=== PATIENT | female | born 1955 | race Asian ===

== ENCOUNTER 2022-07-12 12:32 | Emergency (ER) | payer OTHER, BC ==
--- NOTE | 2022-07-12 13:18 | RAD REPORT ---
EXAM DESCRIPTION: CT - CTHCSPWOC - 07/12/2022 12:56 pm CLINICAL HISTORY: Trauma, head and neck injury. Syncope, simple, normal neuro exam COMPARISON: No comparisons TECHNIQUE: Axial 5 mm thick images of the head were obtained. Axial 2 mm thick images of the cervical spine were obtained with sagittal and coronal reconstruction images generated and reviewed. All CT scans are performed using dose optimization technique as appropriate and may include automated exposure control or mA/KV adjustment according to patient size. FINDINGS: CT HEAD WITHOUT CONTRAST: No acute hemorrhage, hydrocephalus or extra-axial collection is identified.No areas of brain edema or midline shift. Mineralization within the basal ganglia bilaterally, right greater than left. Small f ocus of hyperattenuation is in the right parietal lobe. The paranasal sinuses and mastoids are clear.The calvarium is intact. CT CERVICAL SPINE WITHOUT CONTRAST: No fracture or subluxation.No prevertebral soft tissues swelling is identified. Mild multilevel cervi trent spondylosis. Retrolisthesis of C4 on C5 results in severe bilateral neural foraminal narrowing an d mild central spinal stenosis . Neural foraminal narrowing is also advanced at C5-C6 and C6-7. IMPRESSION: No acute intracranial or cervical spine findings. Asymmetric basal ganglia hyperattenuation on the right as well a small focus of hypoattenuation in th e right parietal lobe favored chronic. Consider further evaluation with contrast-enhanced brain MRI t o further assess. It could be secondary to underlying vascular anomalies.
[2022-07-12 13:45] LABS: Absolute Lymphocytes (CBC) 1.6 K/uL (0.7-4.9); Hematocrit 33.2 % (36.0-45.0); Lymphocytes % 16.3 % (15.3-44.8); MCV 92.8 fL (80-100); MPV 8.2 fL (7.6-11.3); RBC Red Blood Cell Count 3.57 M/uL (3.86-4.86)
--- NOTE | 2022-07-12 13:45 | RAD REPORT ---
EXAM DESCRIPTION: RAD - Foot Right 3 View - 07/12/2022 1:30 pm CLINICAL HISTORY: syncope COMPARISON: No comparisons FINDINGS/IMPRESSION: No acute fracture. No malalignment. Calcaneal spurring. Degenerative changes ar e present at the first tarsal metatarsal joint. A well corticated fragment is seen along the dorsal a spect of the foot at the level of the medial cuneiform. This is favored chronic and either secondary to remote trauma or degenerative changes. Correlate with site of pain.
[2022-07-12 13:49] LABS: Protime INR 1.04
--- NOTE | 2022-07-12 13:52 | RAD REPORT ---
EXAM DESCRIPTION: RAD - Chest Single View - 07/12/2022 1:30 pm CLINICAL HISTORY: COUGH COMPARISON: No comparisons FINDINGS: Lines: None. Lungs: No evidence of edema or pneumonia. Pleural: No significant pleural effusions or pneumothorax. Cardiac: Borderline enlarged cardiac size Atherosclerosis. Mediastinum: Within normal limits. Bones: No acute fractures. Other: None IMPRESSION: No acute cardiopulmonary disease.
[2022-07-12 14:16] LABS: Albumin 3.5 g/dL (3.4-5.0); Bilirubin Direct 0.1 mg/dL (0-0.2); Bilirubin Total 0.4 mg/dL (0.2-1.0); Magnesium 2.2 mg/dL (1.8-2.4); Potassium 3.6 mmol/L (3.5-5.1); Protein, Total 7.6 g/dL (6.4-8.2); Troponin High Sensitivity 5.8 pg/mL (<58.9)
[2022-07-12 14:54] LABS: Urine Blood Trace-intact (Negative); Urine Glucose Negative (Negative); Urine Protein Trace (Negative); Urine pH 8.5 (5.0-7.0)
--- NOTE | 2022-07-12 15:05 | ER ---
Nurse's Notes [facility] Name: Bessie Garcia Age: 67 yrs Sex: Female : 1955 Arrival Date: 07/12/2022 Time: 12:35 Bed 2 Private MD: Diagnosis: Syncope Near;Weakness;UTI/ Urinary tract infection, site not specified;Other sprain of right foot Presentation: 07/12 12:39 Chief complaint: EMS states: Toned out for syncopal episode, pt standing and fishing jl7 then family heard a thump and saw pt had fallen down. BP 60 systolic on EMS arrival, gave 300 mL NS in route to ED, BP up to 110 systolic. Pt complaining of pain to right foot, swelling noted. Family reports this has happened before, unknown cause. Coronavirus screen: At this time, the client does not indicate any symptoms associated with coronavirus-19. Ebola Screen: No symptoms or risks identified at this time. Initial Sepsis Screen: Does the patient meet any 2 criteria? No. Patient's initial sepsis screen is negative. Does the patient have a suspected source of infection? No. Patient's initial sepsis screen is negative. Risk Assessment: Do you want to hurt yourself or someone else? Patient reports no desire to harm self or others. Onset of symptoms was July 12, 2022. Care prior to arrival: Medication(s) given: Normal saline infusion, 300 mL IV initiated. 20 GA, in the right antecubital area, Glucose check: 151. 12:39 Method Of Arrival: EMS: [facility] 7 12:39 Acuity: JOBY 3 jl7 Triage Assessment: 12:43 General: Appears in no apparent distress. uncomfortable, Behavior is calm, cooperative, jl7 appropriate for age. Pain: Complains of pain in dorsum of right foot Pain currently is 10 out of 10 on a pain scale. Neuro: Level of Consciousness is awake, alert, obeys commands, Oriented to person, place, time, situation, Reports a syncopal episode Denies weakness dizziness. Cardiovascular: Denies chest pain, lightheadedness, Patient's skin is warm and dry. Rhythm is regular. Derm: Skin is pink, warm \T\ dry. Historical: - Allergies: 12:43 No Known Allergies; jl7 - PMHx: 12:43 Hypertensive disorder; Hypercholesterolemia; jl7 - Immunization history:: Client reports receiving the 2nd dose of the Covid vaccine. - Social history:: Smoking status: Patient denies any tobacco usage or history of. - Family history:: not pertinent. Screenin:30 Abuse screen: Denies threats or abuse. Denies injuries from another. Nutritional jl7 screening: No deficits noted. Tuberculosis screening: No symptoms or risk factors identified. Fall Risk IV access (20 points). Total Vásquez Fall Scale indicates No Risk (0-24 pts). Assessment: 13:30 Reassessment: Patient appears in no apparent distress at this time. No changes from jl7 previously documented assessment. Patient and/or family updated on plan of care and expected duration. Pain level reassessed. Patient is alert, oriented x 3, equal unlabored respirations, skin warm/dry/pink. 14:30 Reassessment: Patient appears in no apparent distress at this time. No changes from jl7 previously documented assessment. Patient and/or family updated on plan of care and expected duration. Pain level reassessed. Patient is alert, oriented x 3, equal unlabored respirations, skin warm/dry/pink. Neuro: Level of Consciousness is awake, alert, obeys commands, Oriented to person, place, time, situation. Cardiovascular: Patient's skin is warm and dry. Vital Signs: 12:30 BP 105 / 64 Supine; Pulse 70; jl7 12:31 BP 102 / 79 Sitting; Pulse 70; jl7 12:32 BP 109 / 68 Standing; Pulse 72; jl7 12:39 BP 110 / 66; Pulse 70; Resp 15; Temp 97.1; Pulse Ox 98% on R/A; Weight 47.63 kg; Height jl7 5 ft. 0 in. (152.40 cm); Pain 10/10; 13:00 BP 109 / 56; Pulse 68; Resp 15; Pulse Ox 100% ; jl7 14:00 BP 118 / 66; Pulse 77; Resp 15; Pulse Ox 100% ; jl7 14:45 BP 128 / 67; Pulse 76; Resp 15; Pulse Ox 100% ; jl7 15:30 BP 133 / 77; Pulse 76; Resp 19; Pulse Ox 100% ; jl7 12:39 Body Mass Index 20.51 (47.63 kg, 152.40 cm) jl7 ED Course: 12:35 Patient arrived in ED. ss 12:39 Bertrand Powers, RN is Primary Nurse. jl7 12:40 Prabhakar Huggins MD is Attending Physician. jesse 12:43 Triage completed. jl7 12:43 Arm band placed on right wrist. jl7 12:45 Patient has correct armband on for positive identification. Placed in gown. Bed in low jl7 position. Call light in reach. Side rails up X 1. Client placed on continuous cardiac and pulse oximetry monitoring. NIBP monitoring applied. 12:45 Warm blanket given. jl7 12:56 Head C Spine Mpr Wo Con In Process Unspecified. EDMS 13:03 CT Head C Spine In Process Unspecified. EDMS 13:21 Initial lab(s) drawn, by me, sent to lab. EKG done, by ED staff, reviewed by Prabhakar Huggins MD. Maintain EMS IV. Dressing intact. Good blood return noted. Site clean \T\ dry. Gauge \T\ site: 20 Right AC. 13:32 XRAY Chest (1 view) In Process Unspecified. EDMS 13:32 Foot Right 3 View XRAY In Process Unspecified. EDMS 14:58 SARS RAPID Sent. kc6 15:05 Darryl Saavedra MD is Referral Physician. jesse 15:05 Marcellus Gonzalez MD is Referral Physician. jesse 15:47 No provider procedures requiring assistance completed. IV discontinued, intact, jl7 bleeding controlled, No redness/swelling at site. Pressure dressing applied. 15:47 walking boot/air cast. jl7 Administered Medications: 13:33 Drug: NS 0.9% 1000 ml {Note: Administering NS from EMS.} Route: IV; Rate: 1 bolus; jl7 Site: right antecubital; 14:30 Follow up: Response: No adverse reaction; IV Status: Completed infusion; IV Intake: jl7 1000ml 15:20 Drug: Rocephin (cefTRIAXone) 1 grams Route: IV; Rate: per protocol; Site: right jl7 antecubital; 15:30 Follow up: Response: No adverse reaction; IV Status: Completed infusion jl7 15:42 Not Given (Patient Refused): Aspirin Chewable Tablet 162 mg PO once jl7 Medication: 15:45 VIS not applicable for this client. jl7 Intake: 14:30 IV: 1000ml; Total: 1000ml. jl7 Outcome: 15:04 Discharge ordered by . jesse 15:47 Discharged to home via wheelchair, with family. lucero 15:47 Condition: stable 15:47 Discharge instructions given to patient, family, Instructed on discharge instructions, follow up and referral plans. medication usage, Demonstrated understanding of instructions, follow-up care, medications, Prescriptions given X 2. 15:47 Patient left the ED. lucero Signatures: Dispatcher [employer] EDNM Prabhakar Huggins MD MD cha Smirch, Shelby, RN RN Bertrand Powers RN RN Paula Pillai6
--- NOTE | 2022-07-12 15:05 | EDPHYS ---
Physician Documentation [facility] Name: Bessie Garcia Age: 67 yrs Sex: Female : 1955 Arrival Date: 07/12/2022 Time: 12:35 Bed 2 Private MD: ED Physician Prabhakar Huggins HPI: 07/12 14:53 This 67 yrs old Female presents to ER via EMS with complaints of Syncope. jesse 14:53 The patient has experienced near-syncope, felt faint, felt generally weak. Onset: The jesse symptoms/episode began/occurred just prior to arrival. Duration: This was a single episode, that lasted 20 second(s). Context: the episode(s) was witnessed, by family. Associated injury: Right lower extremity: lateral aspect of right foot, contusion, decreased range of motion, pain. Associated signs and symptoms: The patient has no apparent associated signs or symptoms. Current symptoms: Currently, the patient is not experiencing any symptoms. The patient has not experienced similar symptoms in the past. outside fishing 2 hours. Historical: - Allergies: 12:43 No Known Allergies; jl7 - PMHx: 12:43 Hypertensive disorder; Hypercholesterolemia; jl7 - Immunization history:: Client reports receiving the 2nd dose of the Covid vaccine. - Social history:: Smoking status: Patient denies any tobacco usage or history of. - Family history:: not pertinent. ROS: 14:53 Constitutional: Negative for fever, chills, and weight loss, Eyes: Negative for injury, jesse pain, redness, and discharge, ENT: Negative for injury, pain, and discharge, Neck: Negative for injury, pain, and swelling, Cardiovascular: Negative for chest pain, palpitations, and edema, Respiratory: Negative for shortness of breath, cough, wheezing, and pleuritic chest pain, Abdomen/GI: Negative for abdominal pain, nausea, vomiting, diarrhea, and constipation, Back: Negative for injury and pain, : Negative for injury, bleeding, discharge, and swelling, Skin: Negative for injury, rash, and discoloration, Psych: Negative for depression, anxiety, suicide ideation, homicidal ideation, and hallucinations, Allergy/Immunology: Negative for hives, rash, and allergies, Endocrine: Negative for neck swelling, polydipsia, polyuria, polyphagia, and marked weight changes. 14:53 MS/extremity: Positive for decreased range of motion, pain, swelling, tenderness, of the dorsum of right foot. Exam: 14:53 Constitutional: This is a well developed, well nourished patient who is awake, alert, jesse and in no acute distress. Head/Face: Normocephalic, atraumatic. Eyes: Pupils equal round and reactive to light, extra-ocular motions intact. Lids and lashes normal. Conjunctiva and sclera are non-icteric and not injected. Cornea within normal limits. Periorbital areas with no swelling, redness, or edema. ENT: Nares patent. No nasal discharge, no septal abnormalities noted. Tympanic membranes are normal and external auditory canals are clear. Oropharynx with no redness, swelling, or masses, exudates, or evidence of obstruction, uvula midline. Mucous membranes moist. Neck: Trachea midline, no thyromegaly or masses palpated, and no cervical lymphadenopathy. Supple, full range of motion without nuchal rigidity, or vertebral point tenderness. No Meningismus. Chest/axilla: Normal chest wall appearance and motion. Nontender with no deformity. No lesions are appreciated. Cardiovascular: Regular rate and rhythm with a normal S1 and S2. No gallops, murmurs, or rubs. Normal PMI, no JVD. No pulse deficits. Respiratory: Lungs have equal breath sounds bilaterally, clear to auscultation and percussion. No rales, rhonchi or wheezes noted. No increased work of breathing, no retractions or nasal flaring. Abdomen/GI: Soft, non-tender, with normal bowel sounds. No distension or tympany. No guarding or rebound. No evidence of tenderness throughout. Back: No spinal tenderness. No costovertebral tenderness. Full range of motion. Female : Normal external genitalia. Skin: Warm, dry with normal turgor. Normal color with no rashes, no lesions, and no evidence of cellulitis. Neuro: Awake and alert, GCS 15, oriented to person, place, time, and situation. Cranial nerves II-XII grossly intact. Motor strength 5/5 in all extremities. Sensory grossly intact. Cerebellar exam normal. Normal gait. Psych: Awake, alert, with orientation to person, place and time. Behavior, mood, and affect are within normal limits. 14:53 Musculoskeletal/extremity: ROM: full active range of motion, full passive range of motion, Circulation is intact in all extremities. Sensation intact. Compartment Syndrome exam of affected extremity: is normal. Joints: All joints appear normal with full range of motion. Weight bearing: DVT Exam: No signs of deep vein thrombosis. negative Homans' sign noted on exam, no appreciated bluish discoloration, no erythema, no increased warmth, pain, swelling, tenderness, of the dorsum of right foot. 15:47 ECG was reviewed by the Attending Physician. jesse Vital Signs: 12:30 BP 105 / 64 Supine; Pulse 70; jl7 12:31 BP 102 / 79 Sitting; Pulse 70; jl7 12:32 BP 109 / 68 Standing; Pulse 72; jl7 12:39 BP 110 / 66; Pulse 70; Resp 15; Temp 97.1; Pulse Ox 98% on R/A; Weight 47.63 kg; Height jl7 5 ft. 0 in. (152.40 cm); Pain 10/10; 13:00 BP 109 / 56; Pulse 68; Resp 15; Pulse Ox 100% ; jl7 14:00 BP 118 / 66; Pulse 77; Resp 15; Pulse Ox 100% ; jl7 14:45 BP 128 / 67; Pulse 76; Resp 15; Pulse Ox 100% ; jl7 15:30 BP 133 / 77; Pulse 76; Resp 19; Pulse Ox 100% ; jl7 12:39 Body Mass Index 20.51 (47.63 kg, 152.40 cm) jl7 MDM: 12:40 Patient medically screened. jesse 15:45 Differential Diagnosis: aortic aneurysm, cardiac arrhythmia, cerebrovascular accident, jesse emotional response, GI bleed, , pseudo seizure, seizure, sepsis, transient ischemic attack, vasovagal episode. Data reviewed: vital signs, nurses notes, lab test result(s), EKG, radiologic studies, CT scan, plain films. Data interpreted: monitoring manager: rate is 73 beats/min, rhythm is regular, Pulse oximetry: on room air is 100 %. Test interpretation: by ED physician or midlevel provider: ECG, plain radiologic studies. Counseling: I had a detailed discussion with the patient and/or guardian regarding: the historical points, exam findings, and any diagnostic results supporting the discharge/admit diagnosis, lab results, radiology results, the need for outpatient follow up, for definitive care, a cafe server, a family practitioner, a orthopedic surgeon. 07/12 12:43 Order name: Basic Metabolic Panel; Complete Time: 14:50 [facility] 07/12 12:43 Order name: CBC with Diff; Complete Time: 13:53 [facility] 07/12 12:43 Order name: LFT's; Complete Time: 14:50 [facility] 07/12 12:43 Order name: Magnesium; Complete Time: 14:50 [facility] 07/12 12:43 Order name: NT PRO-BNP; Complete Time: 14:50 [facility] 07/12 12:43 Order name: PT-INR; Complete Time: 13:53 [facility] 07/12 12:43 Order name: Troponin HS; Complete Time: 14:50 [facility] 07/12 12:43 Order name: XRAY Chest (1 view); Complete Time: 14:50 [facility] 07/12 12:43 Order name: Lipase; Complete Time: 14:50 [facility] 07/12 12:43 Order name: SARS RAPID [facility] 07/12 12:54 Order name: CT Head C Spine [facility] 07/12 14:54 Order name: Urine Dipstick-Ancillary; Complete Time: 14:58 EDMS 07/12 14:59 Order name: Urine Culture [facility] 07/12 12:43 Order name: EKG; Complete Time: 12:44 [facility] 07/12 12:43 Order name: Cardiac monitoring; Complete Time: 13:21 [facility] 07/12 12:43 Order name: EKG - Nurse/Tech; Complete Time: 13:21 [facility] 07/12 12:43 Order name: IV Saline Lock; Complete Time: 13:21 [facility] 07/12 12:43 Order name: Labs collected and sent; Complete Time: 13:21 [facility] 07/12 12:43 Order name: O2 Per Protocol; Complete Time: 13:21 [facility] 07/12 12:43 Order name: O2 Sat Monitoring; Complete Time: 13:21 [facility] 07/12 12:43 Order name: Urine Dipstick-Ancillary (obtain specimen); Complete Time: 15:43 [facility] 07/12 12:56 Order name: Head C Spine Mpr Wo Con; Complete Time: 13:53 EDMS 07/12 13:20 Order name: Foot Right 3 View XRAY; Complete Time: 13:53 eb 07/12 14:53 Order name: Walking boot; Complete Time: 15:20 jesse 07/12 14:58 Order name: Orthostatics; Complete Time: 15:09 jesse EC:47 Rate is 53 beats/min. Rhythm is regular. QRS [place] is Normal. HI interval is normal. QRS jesse interval is normal. QT interval is normal. No Q waves. T waves are Normal. No ST changes noted. Clinical impression: NSR w/ Non-specific ST/T Changes, Abnormal EKG without significant change, and No evidence of ischemia. Interpreted by me. Reviewed by me. Administered Medications: 13:33 Drug: NS 0.9% 1000 ml {Note: Administering NS from EMS.} Route: IV; Rate: 1 bolus; jl7 Site: right antecubital; 14:30 Follow up: Response: No adverse reaction; IV Status: Completed infusion; IV Intake: jl7 1000ml 15:20 Drug: Rocephin (cefTRIAXone) 1 grams Route: IV; Rate: per protocol; Site: right jl7 antecubital; 15:30 Follow up: Response: No adverse reaction; IV Status: Completed infusion jl7 15:42 Not Given (Patient Refused): Aspirin Chewable Tablet 162 mg PO once jl7 Disposition Summary: 07/12/22 15:04 Discharge Ordered Location: Home jesse Problem: new jesse Symptoms: have improved jesse Condition: Stable jesse Diagnosis - Syncope Near jesse - Weakness jesse - UTI/ Urinary tract infection, site not specified jesse - Other sprain of right foot jesse Followup: jesse - With: Private Physician - When: 1 - 2 days - Reason: Recheck today's complaints, Continuance of care, Re-evaluation by your physician Followup: jesse - With: Darryl Saavedra MD - When: 2 - 3 days - Reason: Recheck today's complaints, Re-evaluation by your physician Followup: jesse - With: Marcellus Gonzalez MD - When: 2 - 3 days - Reason: Recheck today's complaints, Re-evaluation by your physician Discharge Instructions: - Discharge Summary Sheet jesse - Dysuria jesse - Near-Syncope jesse - Syncope jesse - Urinary Tract Infection, Adult jesse - Foot Sprain jesse - Weakness jesse - Urinary Tract Infection, Adult, Abrm-[id number] jesse - Near-Syncope, Inib-az-Utoa jesse - Syncope, Droe-op-Wvuo jesse - Weakness, Vpwd-[id number] jesse - Aspirin and Your Heart jesse - Foot Pain jesse Forms: - Medication Reconciliation Form jesse - Thank You Letter jesse - Antibiotic Education jesse - Prescription Opioid Use jesse Prescriptions: - Cipro 250 mg Oral Tablet - take 1 tablet by ORAL route every 12 hours; 14 tablet; Refills: 0, Product [facility] Selection Permitted - Tylenol 325 mg Oral Tablet - take 2 tablets by ORAL route every 6 hours as needed; 1 bottle; Refills: 0, [facility] Product Selection Permitted Signatures: Dispatcher [employer] EDPrabhakar Sow MD MD cha Leal, Jahala RN RN jl7 Corrections: (The following items were deleted from the chart) 12:56 12:44 Head Brain Wo Cont+CT.RAD.BRZ ordered. EDMS EDMS
[2022-07-12 15:12] LABS: SARS-CoV-2 Antigen Rapid Res Negative (Negative)
[2022-07-12] MEDS ORDERED: CEFTRIAXONE 1000 MG/VIAL ONE (15:25)
[2022-07-12] MEDS ORDERED: NA CHLORIDE 0.9% 50 ML ONE (15:25)
[2022-07-12] MEDS ORDERED: ASPIRIN EC 81 MG TAB PO ONE (15:32)
[2022-07-12 16:32] VITALS: TEMP 97.1
[2022-07-12 16:35] VITALS: O2SAT 100
[2022-07-12 16:41] VITALS: BP 133/77
--- NOTE | 2022-07-14 15:09 | EKG ---
Test Date: 2022-07-12 Test Time: 13:08:03 [employer] Person: ANTHONY MEASUREMENT RESULTS: Intervals: Rate: 73 MD: 146 QRSD: 86 QT: 410 QTc: 451 Inez: P: 44 MD: 146 QRS: 40 T: -20 INTERPRETIVE STATEMENTS: Normal sinus rhythm Abnormal QRS-T angle, consider primary T wave abnormality Abnormal ECG No previous ECG available for comparison Electronically Signed On 07-14-22 15:08:35 CDT by John Hodgson
== END 2022-07-12 15:47 | disposition home or self-care (01) ==
LOC: ER 12:32
DX: R53.1 Weakness (principal); N39.0 Urinary tract infection, site not specified; S93.691A Other sprain of right foot, initial encounter; R55 Syncope and collapse; I10 Essential (primary) hypertension; Z20.822 Contact with and (suspected) exposure to COVID-19
CPT/HCPCS: 36415; 70450; 71045; 72125; 80048; 80076; 81003; 83690; 83735; 83880; 84484; 85025; 85610; 87077; 87086; 87088; 87186; 87811; 93005; 96361; 96374; 99284